=== PATIENT | female | born 1995 | race Asian ===

== ENCOUNTER → 2021-06-23 15:02 | Outpatient (CLI) | payer BC, SELFPAY ==
[2021-06-23 15:32] LABS: Absolute Lymphocyte Count 2.44 X10^3/uL (0.83-4.51); Absolute Neutrophil Count 5.8 X10^3/uL (2.0-7.7); Basophil# 0.04 X10^3/uL; Basophil% 0.4 % (0-1); Eosinophil# 0.16 X10^3/uL; Eosinophils% 1.7 % (0-5); Hematocrit 37.3 % (37-47); Hemoglobin 12.4 g/dL (12.0-15.0); Lymphocyte # 2.44 X10^3/ul (0.83-4.51); Lymphocyte % 26.4 % (19-41); Mean Corp Hgb Conc 33.2 g/dL (32-36); Mean Corpuscular Hgb 29.9 pg (27.0-32.0); Mean Corpuscular Volume 89.9 fL (81-99); Mean Platelet Vol. 9.5 fl (6.2-12.0); Monocyte# 0.75 X10^3/uL; Monocyte% 8.1 % (0-10); NRBC Flagged by Analyzer 0 % (0-5); Neutrophil # 5.81 X10^3/uL (2.7-7.7); Platelet Count 244 K/mm3 (150-450); RBC Distribution Width CV 12.3 % (11.6-14.6); RBC Distribution Width SD 40.6 fl (35.1-43.9); Red Blood Count 4.15 M/mm3 (4.2-5.4); White Blood Count 9.2 K/mm3 (4.4-11.0)
[2021-06-23 17:16] LABS: Amphetamine Urine VISTA NEGATIVE (<1000 ng/mL); Barbiturate Urine VISTA NEGATIVE (< 200 ng/mL); Benzodiazepine Urine VISTA NEGATIVE (< 200 ng/mL); Cocaine Urine VISTA NEGATIVE (< 300 ng/mL); Ecstacy Urine VISTA NEGATIVE (< 500 ng/mL); Methadone Urine VISTA NEGATIVE (< 300 ng/mL); PCP Urine VISTA NEGATIVE (< 25 ng/mL); THC Urine VISTA NEGATIVE (< 50 ng/mL); Vista UDS pH Range 6
[2021-06-24 10:05] LABS: HIV - WCH Non-Reactive (Nonreactive); Hepatitis B Surface Antigen Non-Reactive (Nonreactive); Hepatitis C Antibody Non-Reactive (Nonreactive); Rubella IgG Reactive (Nonreactive); Syphilis Antibodies Non-reactive
[2021-06-26 03:06] LABS: Chlamydia By Nucleic Acid AMP Negative (Negative)
[2021-06-26 07:20] LABS: Gonococcus By Nucleic Acid AMP Negative (Negative)
[2021-06-29 23:52] LABS: HPV Reflexed? NOT INDICATED
== END ==
PROVIDERS: Referring Provider Nurse Practitioner Women's Health; Visit Provider Nurse Practitioner Women's Health
DX: Z34.90 Encounter for supervision of normal pregnancy, unspecified, unspecified trimester (principal); Z12.4 Encounter for screening for malignant neoplasm of cervix; Z11.3 Encounter for screening for infections with a predominantly sexual mode of transmission
CPT/HCPCS: 36415; 80307; 85025; 86703; 86762; 86780; 86803; 86850; 86900; 86901; 87086; 87340; 87491; 87591; 88175; G0145

== ENCOUNTER 2021-09-25 20:40 | Emergency (ER) | payer BC, SELFPAY ==
[2021-09-25 20:41] VITALS: BP 110/63; PULSE 115; RESP 16; TEMP 36.6; O2SAT 98; BMI 30.4
[2021-09-25 22:09] VITALS: O2SAT 96
--- NOTE | 2021-09-25 22:10 | EKG12_ITS ---
Test Reason : DYSRHYTHMIA Blood Pressure : / mmHG Vent. Rate : 102 BPM Atrial Rate : 102 BPM P-R Int : 148 ms QRS Dur : 080 ms QT Int : 332 ms P-R-T Axes : 054 078 030 degrees QTc Int : 432 ms Sinus tachycardia Otherwise normal ECG Confirmed by GREYSON PARK, PAYAL ([id number]), overlock sleeve setter MARIKA EDMONDSON ([id number]) on 09/27/2021 10:18:22 AM Referred By: JORDANA Confirmed By:PAYAL RUBI MD
--- NOTE | 2021-09-25 22:21 | EX.ED.VIS.UR ---
HPI HPI - URI History of Present Illness Chief Complaint: Cough Narrative Narrative: 25-year-old female presenting with a cough. She is diagnosed with COVID-19 and she is currently on day 5. She does admit to body aches and chills. She had a low-grade fever at home. She is not dyspneic. She does complain of a little bit of tightness in the left upper chest and the right upper chest. She does not describe this as sharp. It does not hurt worse with deep inspiration. She is concerned that she might have developed a secondary bacterial infection from her Covid. She has no nausea or vomiting. No urinary complaints. She is currently 23 weeks gestation without complications. ROS ROS ED Constitutional Constitutional ED: Reports chills and fever(s) Eyes Eyes: Denies blurry vision or change in vision ENT ENT ED: Reports rhinorrhea; Denies sore throat Cardiovascular Cardiovascular: Reports chest pain; Denies palpitations Respiratory/Chest Respiratory/Chest: Reports cough; Denies dyspnea Gastrointestinal Gastrointestinal: Denies abdominal pain, nausea or vomiting Genitourinary Genitourinary ED: Denies dysuria or hematuria Musculoskeletal Musculoskeletal: Reports myalgias; Denies arthralgias Integumentary Denies abscess or rash Neurologic Neurologic: Reports headache(s); Denies paresthesias or weakness Psychiatric Psychiatric: Denies anxiety or depression PFSH PFSH Home Medications prenat.vits,nabila,kyf-xxdt-znyuh 1 tab PO DAILY 05/17/21 [History Last Taken Unknown] Allergy/AdvReac Type Severity Reaction Status Date / Time No Known Allergies Allergy Verified 09/25/21 20:48 Family History Grandmother Diabetes Other Cancer Social History adopted: No household members: spouse current occupational status: employed 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 animals: No Smoking Status: Never smoker alcohol intake: never substance use type: does not use caffeine: Yes what type of physical activity do you participate in: running and aerobics frequency: 3-4 times per week seatbelt use: always do you feel safe at home: Yes [facility] EX[facility] Physical Exam Const Vital Signs: 09/25/21 20:41 09/25/21 22:09 09/25/21 22:31 Temperature 97.9 F Temperature Source Temporal Pulse Rate 115 H Respiratory Rate 16 Respiratory Effort Short of Breath Respiratory Pattern Normal Blood Pressure 110/63 Blood Pressure Mean 78 Pulse Ox 98 96 99 Oxygen Delivery Method Room Air Room Air Room Air 09/26/21 00:33 09/26/21 00:41 Temperature Temperature Source Pulse Rate 107 H 98 Respiratory Rate 20 H 16 Respiratory Effort Respiratory Pattern Blood Pressure 104/58 L Blood Pressure Mean 73 Pulse Ox 96 97 Oxygen Delivery Method Room Air Room Air Positive well nourished General Appearance ED: NAD; Negative for pallor HEENT Reports moist mucous membranes normocephalic and atraumatic Resp normal respiratory effort and clear to auscultation bilaterally Cardio Rate: tachycardic Rhythm: regular rhythm GI non-tender and non-distended Palpation: soft Neuro oriented x3 and CN's II-XII intact bilaterally Sensorium / Orientation: alert Psych mental status grossly normal Skin General Skin Exam: Negative for jaundice or pallor MDM MDM MDM Narrative Medical decision making narrative: Patient presenting 23 weeks gestation with current diagnosis of Covid on day 5. We had a long discussion about her chest pain which is intermittent and feels tight. She does not have pain with deep inspiration. She does describe this is more of a painful cough. She denies any cardiac history. This is her first . She has no history of DVT/PE and no other risk factors other than Covid. I had a lengthy discussion about using a D-dimer, however the patient feels that even if her D-dimer was elevated she would not want a CAT scan of her test due to being . For this reason I will not perform this. Patient will have basic lab work including a troponin as well as EKG and chest x-ray to address her concern of secondary bacterial pneumonia. Her blood work shows that she is leukopenic and lymphopenic. Her hemoglobin medic are stable. Renal function and electrolytes are normal. Initial high-sensitivity troponin is 4 the second 1 is 5. EKG on my interpretation shows a sinus rhythm with a ventricular rate of 103/min without sign of ischemic change. Chest x-ray my interpretation shows bilateral pulmonary infiltrates worse on the right. Radiologist agree. Patient's respiratory rate is 16, currently her pulse is 98, O2 saturations 97%. I believe she is stable for discharge home. I did give her return precautions for worsening pain. Impression: 1. Chest pain noncardiac 2. COVID-19 pneumonitis Lab Data Labs: Laboratory Results - last 24 hr 09/25/21 09/25/21 09/25/21 00:30 22:28 22:28 WBC 3.8 L RBC 4.15 L Hgb 12.4 Hct 36.5 L MCV 88.0 MCH 29.9 MCHC 34.0 RDW Std Deviation 38.6 RDW Coeff of Brennan 12.0 Plt Count 139 L MPV 9.8 Immature Gran % (Auto) 2.600 H Neut % (Auto) 68.0 Lymph % (Auto) 18.1 L [place] % (Auto) 10.2 H Eos % (Auto) 0.8 Baso % (Auto) 0.3 Absolute Neuts (auto) 2.6 Absolute Lymphs (auto) 0.69 L Nucleated RBC % 0 Sodium 134 L Potassium 3.6 Chloride 101 Carbon Dioxide 27.0 Anion Gap 6 BUN 4 L Creatinine 0.52 L Estim Creat Clear Calc 141.57 Est GFR (MDRD) Af Amer 182 Est GFR (MDRD) Non-Af 151 BUN/Creatinine Ratio 7.7 L Glucose 92 Calcium 8.3 L Troponin I High Sens 4 5 Urine Color Urine Clarity Urine pH Ur Specific [place] Urine Protein Urine Glucose (UA) Urine Ketones Urine Occult Blood Urine Nitrite Urine Bilirubin Urine Urobilinogen Ur Leukocyte Esterase Urine RBC Urine WBC Ur Squamous Epith Cells Urine Bacteria Urine Mucus 09/25/21 23:50 WBC RBC Hgb Hct MCV MCH MCHC RDW Std Deviation RDW Coeff of Brennan Plt Count MPV Immature Gran % (Auto) Neut % (Auto) Lymph % (Auto) [place] % (Auto) Eos % (Auto) Baso % (Auto) Absolute Neuts (auto) Absolute Lymphs (auto) Nucleated RBC % Sodium Potassium Chloride Carbon Dioxide Anion Gap BUN Creatinine Estim Creat Clear Calc Est GFR (MDRD) Af Amer Est GFR (MDRD) Non-Af BUN/Creatinine Ratio Glucose Calcium Troponin I High Sens Urine Color Yellow Urine Clarity Clear Urine pH 7.0 Ur Specific [place] 1.010 Urine Protein Negative Urine Glucose (UA) Normal Urine Ketones 50 H Urine Occult Blood Negative Urine Nitrite Negative Urine Bilirubin Negative Urine Urobilinogen Normal Ur Leukocyte Esterase Negative Urine RBC 0 SEEN Urine WBC 0-5 SEEN Ur Squamous Epith Cells 0-5 SEEN Urine Bacteria 1+ Urine Mucus 0 SEEN Radiography Diagnostic Testing: Clinical Impression(s) from Imaging Studies Chest X-Ray 09/25/21 22:47 IMPRESSION: 1. Bibasilar, right greater than left, patchy airspace opacities suspicious for early multifocal pneumonia. Electronically Signed: Bartolo Berrios DO at 0:22 EST Tel , Service support , Discharge Plan Triage Chief Complaint: Cough ED Provider: Melquiades Mota Dx/Rx/DC Orders Instructions: Coronavirus Disease 2019 (COVID-19): Caring for Yourself or Others Prescriptions: No Action prenat.vits,nabila,znu-abcj-quaxq Tablet 1 tab PO DAILY RF: 0 Primary Care Provider: Care Physician,No Primary Referrals: Care Physician,No Primary [Primary Care Provider] - Disposition Disposition: Home, Self Care
[2021-09-25 22:31] VITALS: O2SAT 99
[2021-09-25 22:36] LABS: Absolute Lymphocyte Count 0.69 X10^3/uL (0.83-4.51); Absolute Neutrophil Count 2.6 X10^3/uL (2.0-7.7); Basophil# 0.01 X10^3/uL; Basophil% 0.3 % (0-1); Eosinophil# 0.03 X10^3/uL; Eosinophils% 0.8 % (0-5); Hematocrit 36.5 % (37-47); Hemoglobin 12.4 g/dL (12.0-15.0); Lymphocyte # 0.69 X10^3/ul (0.83-4.51); Lymphocyte % 18.1 % (19-41); Mean Corpuscular Hgb 29.9 pg (27.0-32.0); Mean Platelet Vol. 9.8 fl (6.2-12.0); Monocyte# 0.39 X10^3/uL; Monocyte% 10.2 % (0-10); NRBC Flagged by Analyzer 0 % (0-5); Neutrophil # 2.59 X10^3/uL (2.7-7.7); Platelet Count 139 K/mm3 (150-450); RBC Distribution Width SD 38.6 fl (35.1-43.9); Red Blood Count 4.15 M/mm3 (4.2-5.4); White Blood Count 3.8 K/mm3 (4.4-11.0)
--- NOTE | 2021-09-25 22:47 | RAD_ITS ---
INDICATION: chest pain EXAMINATION/TECHNIQUE: X-RAY - XR Chest 1 View COMPARISON: None. FINDINGS: LINES/DEVICES: None. LUNGS: Symmetric normal lung volumes. Bibasilar, right greater than left, patchy airspace opacities suspicious for multifocal pneumonia. No pleural effusion. No pneumothorax. Central airways normal. MEDIASTINUM AND CARDIOVASCULAR STRUCTURES: Normal size and contour of the cardiomediastinal silhouette. No evidence of pulmonary vascular congestion. BONES AND SOFT TISSUES: No abnormality within limits of the exam. RAD/Chest 1 View (Portable) IMPRESSION: 1. Bibasilar, right greater than left, patchy airspace opacities suspicious for early multifocal pneumonia. Electronically Signed: Bartolo Berrios DO at 0:22 EST Tel , Service support ,
[2021-09-25 22:53] LABS: Anion Gap 6 (5-15); BUN 4 mg/dL (7-18); BUN/Creat Ratio 7.7 RATIO (10-20); Calcium,Total 8.3 mg/dL (8.5-10.1); Chloride 101 mmol/L (98-107); Creatinine, Serum 0.52 mg/dL (0.55-1.02); EST Glomerular Filtration Rate 151 mL/min (>60); Est Glom Filt Rate - Afr Amer 182 mL/min (>60); Estimated Creatinine Clearance 141.57 ml/min; Glucose 92 mg/dL (74-106); Potassium 3.6 mmol/L (3.5-5.1); Sodium Level 134 mmol/L (136-145); Troponin-I HS 5 pg/mL (3.0-54.0)
[2021-09-25 23:53] LABS: Mucous, Urine 0 SEEN /hpf (<or=2+); Red Blood Cells-Urine 0 SEEN /hpf (0-5)
[2021-09-26 00:06] LABS: Color, Urine Yellow (Yellow); Glucose, Dipstick Normal (Normal); Ketone-Dipstick 50 mg/dl (Negative); Leukocyte Esterase-Dipstick Negative /ul (Negative); Nitrite-Dipstick Negative (Negative); Occult Blood-Urine Negative /ul (Negative); Protein-Dipstick Negative (Negative); Urine Bilirubin Dipstick Negative (Negative); Urine Clarity Clear (Clear); Urine Urobilinogen Normal (Normal)
[2021-09-26 00:20] LABS: Bacteria 1+ /hpf (None Seen); Squamous Epithelial Cells - UA 0-5 SEEN /hpf (5-10); White Blood Cells 0-5 SEEN /hpf (0-5)
[2021-09-26 00:33] VITALS: PULSE 107; RESP 20; O2SAT 96
[2021-09-26 00:41] VITALS: BP 104/58; PULSE 98; RESP 16; O2SAT 97
[2021-09-26 00:57] LABS: Troponin-I HS 4 pg/mL (3.0-54.0)
== END 2021-09-26 01:37 | disposition home or self-care (01) ==
PROVIDERS: Emergency Provider Student in an Organized Health Care Education/Training Program
DX: O98.512 Other viral diseases complicating pregnancy, second trimester (principal); U07.1 COVID-19; O99.512 Diseases of the respiratory system complicating pregnancy, second trimester; J12.82 Pneumonia due to coronavirus disease 2019; Z3A.23 23 weeks gestation of pregnancy
CPT/HCPCS: 71045; 80048; 81001; 84484; 85025; 93005; 99284; A4216

== ENCOUNTER → 2021-10-11 09:01 | Outpatient (CLI) | payer BC, SELFPAY ==
[2021-10-11 09:22] LABS: Absolute Lymphocyte Count 1.66 X10^3/uL (0.83-4.51); Absolute Neutrophil Count 7.5 X10^3/uL (2.0-7.7); Basophil# 0.05 X10^3/uL; Basophil% 0.5 % (0-1); Eosinophil# 0.07 X10^3/uL; Eosinophils% 0.7 % (0-5); Hematocrit 33.1 % (37-47); Hemoglobin 11.1 g/dL (12.0-15.0); Lymphocyte # 1.66 X10^3/ul (0.83-4.51); Lymphocyte % 16.2 % (19-41); Mean Corp Hgb Conc 33.5 g/dL (32-36); Mean Corpuscular Hgb 29.8 pg (27.0-32.0); Mean Platelet Vol. 9.8 fl (6.2-12.0); Monocyte# 0.73 X10^3/uL; Monocyte% 7.1 % (0-10); NRBC Flagged by Analyzer 0 % (0-5); Neutrophil # 7.52 X10^3/uL (2.7-7.7); Neutrophil % 73.4 % (47-70); Platelet Count 275 K/mm3 (150-450); RBC Distribution Width CV 12.5 % (11.6-14.6); Red Blood Count 3.72 M/mm3 (4.2-5.4); White Blood Count 10.2 K/mm3 (4.4-11.0)
[2021-10-11 09:33] LABS: Glucose Challenge Gest 1H 50g 96 mg/dL (70-140)
== END ==
PROVIDERS: Referring Provider Obstetrics & Gynecology; Visit Provider Obstetrics & Gynecology
DX: Z34.01 Encounter for supervision of normal first pregnancy, first trimester (principal)
CPT/HCPCS: 36415; 82950; 85025

== ENCOUNTER 2021-12-01 07:58 | Outpatient (CLI) | payer BC, SELFPAY ==
--- NOTE | 2021-12-01 08:00 | US_ITS ---
STUDY: SECOND AND THIRD TRIMESTER OBSTETRICAL ULTRASOUND REASON FOR EXAM: Female, 25 years old growth. History of prior Covid LMP: 04/15/2021. TECHNIQUE: Transabdominal TECHNICAL QUALITY: Adequate. PRIOR ULTRASOUND: None. FINDINGS: There is a single intrauterine fetus. The fetus is in a cephalic presentation. There is demonstrated cardiac activity with a heart rate of 138 bpm. There is a normal amniotic fluid volume. The largest amniotic fluid pocket measures 5.4 cm. The amniotic fluid index (DANG) is 14 cm. The placenta is posterior in location and is not low lying. There are Grade 1 placental changes. The cervix measures 4.4 cm in length. The adnexal regions are not visualized. BIOMETRY: BPD: 8.26 cm: 33 weeks, 1 days HC: 30.89 cm: 34 weeks, 3 days AC: 29.13 cm: 33 weeks, 0 days FL: 6.19 cm: 32 weeks, 0 days CI: 76% FL/BPD: 74.9% FL/HC: FL/AC: 21.25% HC/AC: 1.06 age by current US: 33 weeks, 3 days. TOI by current US: 01/16/2022. Estimated weight: 2084 grams, +/- 313 grams, 43 %. Age by LMP: 32 weeks, 6 days. TOI by LMP: 01/20/2022. US/OB Limited With Biometrics IMPRESSION: Single live intrauterine gestation with a mean gestational age of 33 weeks and 3 days. Electronically Signed: Stone Ortiz MD at 8:25 EST ,
== END 2021-12-01 23:59 | disposition home or self-care (01) ==
LOC: OPUS 07:59
PROVIDERS: Referring Provider Nurse Practitioner Women's Health; Visit Provider Nurse Practitioner Women's Health
DX: O98.519 Other viral diseases complicating pregnancy, unspecified trimester (principal); U07.1 COVID-19; Z3A.00 Weeks of gestation of pregnancy not specified
CPT/HCPCS: 76816

== ENCOUNTER 2021-12-29 16:49 | Outpatient (CLI) | payer BC, SELFPAY | END 2021-12-29 23:59 | disposition home or self-care (01) | LOC: LABSPEC 16:51 | PROVIDERS: Referring Provider Obstetrics & Gynecology; Visit Provider Obstetrics & Gynecology | DX: Z34.01 Encounter for supervision of normal first pregnancy, first trimester (principal) | CPT/HCPCS: 87081 ==

== ENCOUNTER 2022-01-03 07:38 | Outpatient (CLI) | payer BC, SELFPAY ==
--- NOTE | 2022-01-03 07:43 | US_ITS ---
STUDY: SECOND AND THIRD TRIMESTER OBSTETRICAL ULTRASOUND - LIMITED REASON FOR EXAM: Female, 26 years old. growth PRIOR ULTRASOUND: 2.9.22 TECHNIQUE: Transabdominal TECHNICAL QUALITY: Adequate. FINDINGS: There is a single intrauterine fetus. The fetus is in a cephalic presentation. There is demonstrated cardiac activity with a heart rate of 125 bpm. There is a normal amniotic fluid volume. The largest amniotic fluid pocket measures 4.8 cm. The amniotic fluid index (DANG) is 12.1 cm. The placenta is posterior in location and is not low lying. There are Grade 2 placental changes. The cervix is obscured by overlying bowel gas and cannot be identified. . BIOMETRY: BPD: 91 mm: 37 weeks, 0 days HC: 333 mm: 38 weeks, 0 days AC: 330 mm: 36 weeks, 6 days FL: 69 mm: 35 weeks, 3 days CI: 80 FL/AC: 21 FL/BPD: 76 HC/AC: 1.01 age by current US: 37 weeks, 1 days. TOI by current US: 4.3.22. Estimated weight: 3007 grams, +/- 451 grams, 37 %. age by prior US: 38 weeks, 1 days. TOI by prior US: 3.27.22. Age by LMP: 37 weeks, 4 days. TOI by LMP: 3.3.22. ANATOMY: Growth only US/OB Limited With Biometrics IMPRESSION: There is a single live intrauterine with a heart rate of 125 bpm. age by current US: 37 weeks, 1 days. TOI by current US: 4.3.22. Estimated weight: 3007 grams, +/- 451 grams, 37 %. Electronically Signed: Oscar Ngo MD at 15:48 EDT ,
== END 2022-01-03 23:59 | disposition home or self-care (01) ==
LOC: OPUS 07:42
PROVIDERS: Referring Provider Nurse Practitioner Women's Health; Visit Provider Nurse Practitioner Women's Health
DX: O98.519 Other viral diseases complicating pregnancy, unspecified trimester (principal); U07.1 COVID-19; Z3A.00 Weeks of gestation of pregnancy not specified
CPT/HCPCS: 76816

== ENCOUNTER 2022-01-10 08:05 | Inpatient (IN) | payer BC, SELFPAY ==
[2022-01-10] VITALS (26 sets, daily range): BP systolic 110–139; BP diastolic 54–81; PULSE 65–88; TEMP 36.4–37.1; O2SAT 83–99; BMI 34.5
[2022-01-10 08:04] LABS: ROM Internal Control Test YES-OK TO RESULT pt. (Internal QC)
[2022-01-10 08:05] LABS: ROM Patient Test POSITIVE (Negative)
--- NOTE | 2022-01-10 08:28 | HP.PCM.OB_ITS ---
HPI - General General Date of Admission: 01/10/22 HPI Narrative ELISABET STANLEY, is a 26 F who presents with clear ROM since yesterday, irregular ctx now increasing Maternal Data Information TOI Calculator Estimated Delivery Date Method Current WG Current Estimate 01/20/22 LMP (Certain) 38w 5d PFSH PFSH Medical History (Updated 01/10/22 @ 20:[address] 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 Smoking Status: Never smoker alcohol intake: never substance use type: does not use caffeine: Yes what type of physical activity do you participate in: running and aerobics frequency: 3-4 times per week seatbelt use: always do you feel safe at home: Yes additional social history: -Saurav History 1 Elective abortions Hx Para 0 Spontaneous abortions Hx # Term Pregnancies Ectopic pregnancies Hx # Pregnancies Multiple births # of living children Visit Details Expected Delivery Route/Plan plan IOL at 41 Labor Preferences- CB/BF classes: yes labor support person: Saurav labor intervention preferences: [] pain management options preferred: yes but wants limited intervention cut cord/dad catch: yes : yes PP control planned: discussed discussed possible routes of delivery and associated risks: [] special requests: [] Plans Covid status: had covid while Flu vaccine: declines Tdap vaccine: declined Rhogam: NA LARC form signed: Yes movement and labor precautions reviewed. Problem list reviewed and updated with the most current plan of care details and appropriate orders placed. Relevant counseling for the gestational age provided. Continue routine care and follow up unless otherwise noted in visit notes/problem list details OB Flowsheet Initial Weight: Not Recorded Date -?-?-?-?-?-?-?-?-?-?-?-?- EGA Weight BP Urine Prot -?-?-?-?-?-?--?-?-?-?-?-?- Glucose FHR FuHt Pres Dilation -?-?-?-?-?-?-?-?-?-?-?-?- Effaced St Visit Note 07/28/21 -?-?-?-?-?-?-?-?-?-?-?-?- 14w 6d 169 lb 8 oz 120/78 Nega tive -?-?-?-?-?-?-?-?-?-?-?-?- Negative 145 -?-?-?-?-?-?-?-?-?-?-?-?- GP - no cramping or bleeding. Nausea improved. PRR. Anatomy ordered. 08/18/21 -?-?-?-?-?-?-?-?-?-?-?-?- 17w 6d 175 lb 114/68 Negative -?-?-?-?-?-?-?-?-?-?-?-?- Negative 143 -?-?-?-?-?-?-?-?-?-?-?-?- MH-No Vb, LOF. D eclines flu vaccine. Thinks feeling flutters. Anatomy US 08/2509/15/21 -?-?-?-?-?-?-?-?-?-?-?-?- 21w 6d 181 lb 4 oz 100/70 Nega tive -?-?-?-?-?-?-?-?-?-?-?-?- Negative 145 22 -?-?-?-?-?-?-?-?-?-?-?-?- JV- no lof, vagi nal bleeding, dec fm. having a girl! normal anatomy. glucola info given 10/11/21 -?-?-?-?-?-?-?-?-?-?-?-?- 25w 4d 179 lb 4 oz 128/76 Trac e -?-?-?-?-?-?-?-?-?-?-?-?- Negative 151 25 -?-?-?-?-?-?-?-?-?-?-?-?- MH-No Vb, LOF Go od FM. Needs growth US at 32 and 36 wk and take baby ASA daily due to recent covid +. 28 wk labs WNL. Larc and tdap 10/29/21 -?-?-?-?-?-?-?-?-?-?-?-?- 28w 1d 185 lb 4 oz 110/70 Nega tive -?-?-?-?-?-?-?-?-?-?-?-?- Negative 154 28 -?-?-?-?-?-?-?-?-?-?-?-?- JV- no lof, va g inal bleeding, or dec fm. passed glucola. 11/10/21 -?-?-?-?-?-?-?-?-?-?-?-?- 29w 6d 188 lb 104/70 Negative -?-?-?-?-?-?-?-?-?-?-?-?- Negative 141 30 -?-?-?-?-?-?-?-?-?-?-?-?- JV- lots of ques tions about the labor class they took. they want to decline abx eye ointment, 11/24/21 -?-?-?-?-?-?-?-?-?-?-?-?- 31w 6d 196 lb 8 oz 118/72 Nega tive -?-?-?-?-?-?-?-?-?-?-?-?- Negative 140 31 -?-?-?-?-?-?-?-?-?-?-?-?- JV- no lof, vagi nal bleeding, or dec fm. labs reviewed. nrml 1 hr gct. 12/06/21 -?-?-?-?-?-?-?-?-?-?-?-?- 33w 4d 194 lb 102/60 Negative -?-?-?-?-?-?-?-?-?-?-?-?- Negative 140 33 -?-?-?-?-?-?-?-?-?-?-?-?- SM- no vb lof go od fm no regular ctx 12/22/21 -?-?-?-?-?-?-?-?-?-?-?-?- 35w 6d 194 lb 110/80 Negative -?-?-?-?-?-?-?-?-?-?-?-?- Negative 125 35 -?-?-?-?-?-?-?-?-?-?-?-?- JV- pt has a selwyn lee ann today. bp normal. encouraged to try tylenol and rest and call if no improvement 12/29/21 -?-?-?-?-?-?-?-?-?-?-?-?- 36w 6d 198 lb 2 oz 136/88 Nega tive -?-?-?-?-?-?-?-?-?-?-?-?- Negative 134 36 Cephalic 0 -?-?-?-?-?-?-?-?-?-?-?-?- 60 -3 JV- pt had to reschedule ultrasound. GBS collected and labor precautions discussed. 01/03/22 -?-?-?-?-?-?-?-?-?-?-?-?- 37w 4d 199 lb 102/62 Negative -?-?-?-?-?-?-?-?-?-?-?-?- Negative 120 37 Cephalic -?-?-?-?-?-?-?-?-?-?-?-?- SM- no vb lof go od fm no regular ctx 01/10/22 -?-?-?-?-?-?-?-?-?-?-?-?- 38w 4d 195 lb 110/62 139/70 123/70 116/67 128/81 116/60 120/72 126/61 122/68 115/54 122/57 133/60 132/61 115/57 125/66 123/61 119/62 127/67 -?-?-?-?-?-?-?-?-?-?-?-?- -?-?-?-?-?-?-?--?-?-?-?-?- NST FHR Rate Baby A Baseline: 140 Variability:: Moderate Accelerations:: 15 x 15 Decelerations:: None NST Reactive:: Yes FHR Category:: Category I ROS Constitutional Constitutional: Reports systems reviewed and no addt'l complaints, except as documented ENT HEENT: Reports systems reviewed and no addt'l complaints, except as documented Cardiovascular Cardiovascular: Reports systems reviewed and no addt'l complaints, except as documented Respiratory/Chest Respiratory/Chest: Reports systems reviewed and no addt'l complaints, except as documented Gastrointestinal Gastrointestinal: Reports systems reviewed and no addt'l complaints, except as documented and nausea; Denies abdominal pain Genitourinary Genitourinary: Reports systems reviewed and no addt'l complaints, except as documented, contractions Details: present and frequency (regular ) and movement Details: present Musculoskeletal Musculoskeletal: Reports systems reviewed and no addt'l complaints, except as documented Integumentary Integumentary: Reports as per HPI Neurologic Neurologic: Reports systems reviewed and no addt'l complaints, except as documented Endocrine Endocrinology: Reports systems reviewed and no addt'l complaints, except as documented Vital Signs Vital Signs Vital Signs: 01/10/22 07:41 Pulse Rate 65 Blood Pressure 110/62 BP Systolic 110 BP Diastolic 62 Weight Weight: 195 lb Body Mass Index (BMI) 34.5 Physical Exam Const alert, oriented x3 and healthy appearing Constitutional Narrative: uncomfortable with contractions HEENT normocephalic and moist oral mucous membranes Head and Scalp: atraumatic Neck full ROM, no lymphadenopathy, supple and thyroid normal General: trachea midline Thyroid: thyroid normal Lymph Lymphatic: no lymphadenopathy noted Chest inspection of chest normal Resp normal respiratory effort Cardio regular rate GI normal to inspection, nondistended, normoactive bowel sounds, soft to palpation and non-tender Inspection: gravid external exam normal Bimanual Exam - Vag & Uterus: uterus non-tender Manual OB Exam: estimated gestational size appropriate, presentation cephalic, dilated 3, effaced 90 and station -1 Extremity normal to inspection General Extremity: Negative for edema Skin no rashes or lesions noted Neuro deep tendon reflexes 2+ bilaterally Motor Exam: strength 5/5 throughout and clonus absent Psych mental status grossly normal Labs Labs Labs: Blood Type A POSITIVE Antibody Screen NEGATIVE Hct 39.7 % (37-47) Hgb 13.5 g/dL (12.0-15.0) Obstetrics US Syphilis Total Ab Non-reactive Rubella IgG Antibody Reactive (Nonreactive) Hep Bs Antigen Non-Reactive (Nonreactive) Chlamydia DNA ([place]) Negative (Negative) Neisseria gonorrhoeae DNA ([place]) Negative (Negative) HIV 1&2 Antibody Non-Reactive (Nonreactive) Glucose 1 Hr 50 gm 96 mg/dL (70-140) Assessment & Plan (1) COVID-19 affecting , antepartum: COMMENT: baby asa growth US at 32 and 36 weeks, nl growth, 36w nl growth (2) Supervision of normal : QUALIFIERS: Normal : normal first Trimester: first trimester Qualified Code(s): Z34.01 - Encounter for supervision of normal first , first trimester COMMENT: PRR TOI: 01/20/22 girl Iman Spouse: Saurav (3) Psoriasis: COMMENT: no meds (4) : QUALIFIERS: Weeks of gestation: 37 weeks Qualified Code(s): Z3A.37 - 37 weeks gestation of COMMENT: declines genetic and carrier screen, 08/24/21 nl anatomy scan. GBS neg (5) Prolonged rupture of membranes: COMMENT: monitor for signs of infection, pitocin PRN. epidurla if desired, prefers minimal intervention
[2022-01-10] MEDS: Lactated Ringers 1,000 ML 50 ML IV (08:45)
[2022-01-10 09:04] LABS: Absolute Lymphocyte Count 1.52 X10^3/uL (0.83-4.51); Absolute Neutrophil Count 12.4 X10^3/uL (2.0-7.7); Basophil# 0.03 X10^3/uL; Basophil% 0.2 % (0-1); Eosinophil# 0.03 X10^3/uL; Eosinophils% 0.2 % (0-5); Hematocrit 39.7 % (37-47); Hemoglobin 13.5 g/dL (12.0-15.0); Lymphocyte # 1.52 X10^3/ul (0.83-4.51); Lymphocyte % 10.2 % (19-41); Mean Corpuscular Hgb 30.5 pg (27.0-32.0); Mean Corpuscular Volume 89.6 fL (81-99); Mean Platelet Vol. 10.5 fl (6.2-12.0); Monocyte# 0.81 X10^3/uL; Monocyte% 5.4 % (0-10); NRBC Flagged by Analyzer 0 % (0-5); Neutrophil # 12.35 X10^3/uL (2.7-7.7); Neutrophil % 83.1 % (47-70); Platelet Count 248 K/mm3 (150-450); RBC Distribution Width CV 12.5 % (11.6-14.6); RBC Distribution Width SD 41.1 fl (35.1-43.9); Red Blood Count 4.43 M/mm3 (4.2-5.4); White Blood Count 14.9 K/mm3 (4.4-11.0)
[2022-01-10] MEDS: Oxytocin 30 units/NS 500 ml 30 UNITS/500 ML IV.SOLN IV (16:45)
--- NOTE | 2022-01-10 18:05 | PCM.PN.BLA ---
Progress Note reassuring FHT no signs of chorio, pitocin started for arrest at 5 cm. continue labor support
[2022-01-10] MEDS: fentaNYL 100 MCG/2 ML Ampul IV (18:11)
--- NOTE | 2022-01-10 20:17 | EX.PCM.OBRPT ---
Assessment & Plan (1) : QUALIFIERS: Weeks of gestation: 37 weeks Qualified Code(s): Z3A.37 - 37 weeks gestation of COMMENT: declines genetic and carrier screen, 08/24/21 nl anatomy scan. GBS neg (2) Psoriasis: COMMENT: no meds (3) Supervision of normal : QUALIFIERS: Normal : normal first Trimester: first trimester Qualified Code(s): Z34.01 - Encounter for supervision of normal first , first trimester COMMENT: PRR TOI: 01/20/22 tony Valerio Spouse: Saurav (4) COVID-19 affecting , antepartum: COMMENT: baby asa growth US at 32 and 36 weeks, nl growth, 36w nl growth (5) Prolonged rupture of membranes: COMMENT: monitor for signs of infection, pitocin PRN. epidurla if desired, prefers minimal intervention (6) Vaginal delivery: COMMENT: ial prom girl ligia Maternal Data Information TOI Calculator Estimated Delivery Date Method Current WG Current Estimate 01/20/22 LMP (Certain) 38w 4d Vaginal Delivery Operative Information Date of Procedure: 01/10/22 Pre-Operative Diagnosis: IAL Post-Operative Diagnosis: same Surgery / Procedure Performed: Spontaneous Vaginal Delivery Type of Anesthesia: None Special Medications: none Estimated Blood Loss: 100 Fluids Replaced: crystalloid Findings Description of Procedure: Patient began pushing and delivered the head in the FRANCIA presentation. The head was delivered atraumatically . The anterior and posterior shoulders delivered without complication followed by the rest of the infant and the infant was placed on the maternal abdomen. Delayed cord clamping was employed for approximately 60 seconds. Cord was clamped and cut and gentle traction was applied to the cord and the placenta delivered spontaneously immediately following it was noted to be intact with three-vessel cord. The perineum and vagina were inspected and noted to have no laceration. EBL was 100 cc. Patient and infant tolerated delivery well. Presentation: FRANCIA Amniotic Membrane Rupture Type: Artificial Amniotic Fluid Description: Clear Placental Delivery Description: Spontaneous Placenta Disposition: [facility] Cord Vessel Description: 3 Vessels Cord Entanglement: None Delayed Cord Clamping: Yes Post Vaginal Delivery Episiotomy Description: None Laceration: None Complication Complications: None Procedures Urinary/Genital [id number]: [id number] Vaginal Delivery [facility]
--- NOTE | 2022-01-10 20:22 | PCM.DC ---
Discharge Instructions Diet Discharge Diet: No restrictions Activity Discharge Activity: Return to Normal Activity, May Not Drive (while taking narcotic pain medications.) and May Shower May resume sexual activity in: 4-6 weeks Dressing / Incision Call your doctor if your incision/area has: Continuous Slow Oozing, Sudden Increased Bleeding, Increased Pain/ Swelling, Increased Redness and Foul Smelling Discharge Follow Up Care Please Follow Up With: Shikha Hernandez MD When: Call [phone] to make an appointment with your doctor in 6 weeks. If you had elevated blood pressure or 4th degree laceration, you will need to be seen in 2 weeks. Test Results: Test results from this visit will be discussed in further detail at your follow-up appointment, if applicable. Discharge Plan Admission Admit Date/Time: 01/10/22 08:05 Attending Provider: Shikha Hernandez Primary Care Provider: Care ,Nidhi Primary Discharge Orders/Prescriptions Prescriptions: No Action prenat.vits,nabila,dtc-twma-auesq Tablet 1 tab PO DAILY RF: 0 Aspir-81 RF: 0 Referrals / Follow Up: Care Physician,No Primary [Primary Care Provider] - Disposition Disposition (needs filled in before D/C Order can be placed): Home, Self Care
[2022-01-10] MEDS: Naproxen 500 MG Tablet PO (21:05)
[2022-01-11 00:38] VITALS: BP 110/67; PULSE 99; RESP 16; TEMP 36.9
[2022-01-11 04:31] VITALS: BP 104/51; PULSE 73; RESP 16; TEMP 36.6
--- NOTE | 2022-01-11 07:57 | PN.OBGYN_ITS ---
Subjective Subjective Patient doing well without complaints. Tolerating PO. Ambulating and voiding without difficulty. Feeding well. Denies chest pain, shortness of breath, calf pain/swelling, fevers, chills, lightheadedness. Objective Data Objective Data Vital Signs: Vital Signs Temp Pulse Resp BP Pulse Ox 97.9 F 73 16 104/51 L 99 01/11/22 04:31 01/11/22 04:31 01/11/22 04:31 01/11/22 04:31 01/10/22 18:28 Oxygen Delivery Method Room Air Weight: 195 lb Body Mass Index (BMI) 34.5 Intake & Output: Intake and Output for Last 24 Hours 01/09/22 01/10/22 01/11/22 23:59 23:59 23:59 Intake Total 292.63 / 292.63 Output Total 1300 / 1300 Balance 292.63 / 292.63 -1300 / -1300 Lab / Micro Data Result Diagrams: 01/10/22 08:45 Labs: Laboratory Results - last 24 hr 01/10/22 07:45: Vag Amniotic Fld Detect POSITIVE H 01/10/22 08:45: WBC 14.9 H, RBC 4.43, Hgb 13.5, Hct 39.7, MCV 89.6, MCH 30.5, MCHC 34.0, RDW Std Deviation 41.1, RDW Coeff of Brennan 12.5, Plt Count 248, MPV 10.5, Immature Gran % (Auto) 0.900, Neut % (Auto) 83.1 H, Lymph % (Auto) 10.2 L, Harn[place] % (Auto) 5.4, Eos % (Auto) 0.2, Baso % (Auto) 0.2, Absolute Neuts (auto) 12.4 H, Absolute Lymphs (auto) 1.52, Nucleated RBC % 0 01/10/22 08:45: Blood Type A POSITIVE, Antibody Screen NEGATIVE Micro: Microbiology 01/10/22 09:35 Nasal Secretion SARS-CoV-2 Antigen (Rapid) - Final Physical Exam Const alert and oriented x3 HEENT normocephalic Eyes PERRL Neck full ROM Resp normal respiratory effort GI soft to palpation GI Narrative: FF below U Assessment & Plan (1) Vaginal delivery: COMMENT: ial prom girl ligia PLAN: s/p PPD #1 1. routine post delivery care 2. breast feeding- support given 3. rh positive 4. rubella immune
[2022-01-11 08:27] VITALS: BP 110/62; PULSE 74; RESP 15; TEMP 36.2
[2022-01-11 12:31] VITALS: BP 102/53; PULSE 66; RESP 16; TEMP 36.3
[2022-01-11 15:27] VITALS: BP 102/53; PULSE 83; RESP 15; TEMP 36.4
[2022-01-11 20:52] VITALS: BP 103/52; PULSE 66; RESP 16; TEMP 36.5
[2022-01-12 01:50] VITALS: BP 114/51; PULSE 82; RESP 16; TEMP 36.3
--- NOTE | 2022-01-12 07:48 | PCM.PN.OB ---
Subjective Subjective Patient doing well without complaints. Tolerating PO. Ambulating and voiding without difficulty. Feeding well. Denies chest pain, shortness of breath, calf pain/swelling, fevers, chills, lightheadedness. Objective Data Objective Data Vital Signs: Vital Signs Temp Pulse Resp BP Pulse Ox 97.4 F L 82 16 114/51 L 99 01/12/22 01:50 01/12/22 01:50 01/12/22 01:50 01/12/22 01:50 01/10/22 18:28 Oxygen Delivery Method Room Air Weight: 195 lb Body Mass Index (BMI) 34.5 Intake & Output: Intake and Output for Last 24 Hours 01/10/22 01/11/22 01/12/22 23:59 23:59 23:59 Intake Total 292.63 / 292.63 Output Total 1300 / 1300 Balance 292.63 / 292.63 -1300 / -1300 Lab / Micro Data Result Diagrams: 01/10/22 08:45 Micro: Microbiology 01/10/22 09:35 Nasal Secretion SARS-CoV-2 Antigen (Rapid) - Final Physical Exam Const alert and oriented x3 HEENT normocephalic Eyes PERRL Neck full ROM Resp normal respiratory effort GI soft to palpation GI Narrative: FF below U Assessment & Plan (1) Vaginal delivery: COMMENT: ial prom girl ligia PLAN: s/p PPD # 2 1. routine post delivery care 2. breast feeding- support given 3. rh positive 4. rubella immune
[2022-01-12 08:45] VITALS: BP 106/58; PULSE 72; RESP 16; TEMP 36.6
== END 2022-01-12 10:20 | disposition home or self-care (01) | DRG 807 ==
LOC: WPOUT 08:14 → WP 10:29
PROVIDERS: Obstetrics & Gynecology; Admitting Provider Obstetrics & Gynecology; Visit Provider Obstetrics & Gynecology
DX: O99.72 Diseases of the skin and subcutaneous tissue complicating childbirth (principal); Z37.0 Single live birth; J45.909 Unspecified asthma, uncomplicated; L40.9 Psoriasis, unspecified; Z3A.37 37 weeks gestation of pregnancy; Z86.16 Personal history of COVID-19; O99.52 Diseases of the respiratory system complicating childbirth
CPT/HCPCS: 59025; 59050; 84112; 85025; 86850; 86900; 86901; 87426; 99218; J7120; G0378

== ENCOUNTER → 2022-11-09 | Outpatient (CLI) | payer BC, SELFPAY ==
[2022-11-09 16:00] LABS: hCG Titer Quant., Serum 44844 mIU/mL (1-3)
== END | disposition home or self-care (01) ==
LOC: PAVLAB 14:33
PROVIDERS: Referring Provider Obstetrics & Gynecology; Visit Provider Obstetrics & Gynecology
DX: N91.2 Amenorrhea, unspecified (principal)
CPT/HCPCS: 36415; 84702

== ENCOUNTER → 2022-11-16 | Outpatient (CLI) | payer BC, SELFPAY ==
--- NOTE | 2022-11-16 16:18 | US_ITS ---
STUDY: FIRST TRIMESTER OBSTETRICAL ULTRASOUND REASON FOR EXAM: Female, 26 years old. Viability. Dating. LMP: Unknown TECHNIQUE: Transvaginal TECHNICAL QUALITY: Adequate. PRIOR ULTRASOUND: None. FINDINGS: There is visualization of a single gestational sac in a normal intrauterine position. The mean sac diameter (MSD) measures 2.78 cm, indicating an estimated gestational age (EGA) of 7 weeks, 6 days. The gestational sac shape is within normal limits. There is a visualized yolk sac. The yolk sac measures 0.31 cm. The placenta is non-visualized. There is visualization of a live embryo. The crown-rump length (CRL) measures 1.14 cm, indicating an estimated gestational age (EGA) of weeks, 2 days. There is demonstrated cardiac activity with a heart rate of 127 bpm. The estimated gestation age (EGA) by US is 7 weeks, 4 days. The estimated date of delivery (TOI) by US is July 01, 2023. The uterus measures 8.5 x 6.8 x 6.3 cm. There is a 1.5 x 0.6 x 0.7 cm subchorionic hemorrhage along the inferior aspect of the gestational sac. There is no demonstrated uterine fibroid. The cervix is closed. The right ovary measures 3.9 x 2.8 x 1.7 cm. There is 1.8 x 2.0 x 1.1 cm corpus luteum cyst. There is no visualized right adnexal mass or complex lesion. Normal vascularity and Doppler imaging. The left ovary measures 2.2 x 1.6 x 1.3 cm. There is no left ovarian cyst. There is no visualized left adnexal mass or complex lesion. Vascularity and Doppler imaging. There is minimal fluid in the cul de sac. US/Transvaginal w/Preg US IMPRESSION: 1. Live single intrauterine at 7 weeks, 4 days. TOI is July 01, 2023. 2. Small subchorionic hemorrhage. 3. Right ovarian corpus luteum cyst. Left ovary is unremarkable. Electronically Signed: Jayro Moore DO at 18:06 EST ,
== END | disposition home or self-care (01) ==
LOC: US 16:17
PROVIDERS: Referring Provider Obstetrics & Gynecology; Visit Provider Obstetrics & Gynecology
DX: O20.8 Other hemorrhage in early pregnancy (principal); Z3A.01 Less than 8 weeks gestation of pregnancy; N83.11 Corpus luteum cyst of right ovary; N91.2 Amenorrhea, unspecified
CPT/HCPCS: 76817

== ENCOUNTER → 2022-12-07 | Outpatient (CLI) | payer BC, SELFPAY ==
[2022-12-07 14:21] LABS: Absolute Lymphocyte Count 2.73 X10^3/uL (0.83-4.51); Absolute Neutrophil Count 5.3 X10^3/uL (2.0-7.7); Basophil# 0.02 X10^3/uL; Basophil% 0.2 % (0-1); Eosinophil# 0.09 X10^3/uL; Hematocrit 38.7 % (37-47); Hemoglobin 12.7 g/dL (12.0-15.0); Lymphocyte # 2.73 X10^3/ul (0.83-4.51); Lymphocyte % 30.8 % (19-41); Mean Corp Hgb Conc 32.8 g/dL (32-36); Mean Corpuscular Hgb 29.1 pg (27.0-32.0); Mean Corpuscular Volume 88.8 fL (81-99); Mean Platelet Vol. 9.2 fl (6.2-12.0); Monocyte# 0.64 X10^3/uL; Monocyte% 7.2 % (0-10); NRBC Flagged by Analyzer 0 % (0-5); Neutrophil # 5.34 X10^3/uL (2.7-7.7); Neutrophil % 60.5 % (47-70); Platelet Count 293 K/mm3 (150-450); RBC Distribution Width CV 12.5 % (11.6-14.6); RBC Distribution Width SD 40.9 fl (35.1-43.9); Red Blood Count 4.36 M/mm3 (4.2-5.4); White Blood Count 8.9 K/mm3 (4.4-11.0)
[2022-12-07 15:23] LABS: HIV - WCH Non-Reactive (Nonreactive); Hepatitis B Surface Antigen Non-Reactive (Nonreactive); Hepatitis C Antibody Non-Reactive (Nonreactive); Rubella IgG Reactive (Nonreactive); Syphilis Antibodies Non-reactive
[2022-12-10 12:08] LABS: Chlamydia By Nucleic Acid AMP Negative (Negative)
[2022-12-10 22:13] LABS: Gonococcus By Nucleic Acid AMP Negative (Negative)
== END | disposition home or self-care (01) ==
PROVIDERS: Referring Provider Obstetrics & Gynecology; Visit Provider Obstetrics & Gynecology
DX: Z34.90 Encounter for supervision of normal pregnancy, unspecified, unspecified trimester (principal)
CPT/HCPCS: 36415; 85025; 86703; 86762; 86780; 86803; 86850; 86900; 86901; 87086; 87088; 87186; 87340; 87491; 87591

== ENCOUNTER → 2023-04-19 | Outpatient (CLI) | payer BC, SELFPAY ==
[2023-04-19 13:24] LABS: Absolute Lymphocyte Count 1.91 X10^3/uL (0.83-4.51); Absolute Neutrophil Count 5.7 X10^3/uL (2.0-7.7); Basophil# 0.04 X10^3/uL; Basophil% 0.5 % (0-1); Eosinophil# 0.09 X10^3/uL; Hematocrit 35.8 % (37-47); Hemoglobin 12.2 g/dL (12.0-15.0); Lymphocyte # 1.91 X10^3/ul (0.83-4.51); Lymphocyte % 22.3 % (19-41); Mean Corp Hgb Conc 34.1 g/dL (32-36); Mean Corpuscular Hgb 30.9 pg (27.0-32.0); Mean Corpuscular Volume 90.6 fL (81-99); Monocyte# 0.67 X10^3/uL; Monocyte% 7.8 % (0-10); NRBC Flagged by Analyzer 0 % (0-5); Neutrophil # 5.74 X10^3/uL (2.7-7.7); Neutrophil % 66.9 % (47-70); Platelet Count 259 K/mm3 (150-450); RBC Distribution Width CV 12.5 % (11.6-14.6); RBC Distribution Width SD 41.5 fl (35.1-43.9); Red Blood Count 3.95 M/mm3 (4.2-5.4); White Blood Count 8.6 K/mm3 (4.4-11.0)
[2023-04-19 13:31] LABS: Glucose Challenge Gest 1H 50g 135 mg/dL (70-140)
[2023-04-19 14:24] LABS: HIV - WCH Non-Reactive (Nonreactive); Syphilis Antibodies Non-reactive
== END | disposition home or self-care (01) ==
LOC: PAVLAB 12:47
PROVIDERS: Advanced Practice Midwife; Referring Provider Obstetrics & Gynecology; Visit Provider Obstetrics & Gynecology
DX: O09.90 Supervision of high risk pregnancy, unspecified, unspecified trimester (principal); Z13.1 Encounter for screening for diabetes mellitus; Z3A.00 Weeks of gestation of pregnancy not specified
CPT/HCPCS: 36415; 82950; 85025; 86703; 86780

== ENCOUNTER → 2023-04-27 | Outpatient (CLI) | payer BC, SELFPAY ==
[2023-04-27 08:02] LABS: Glucose GTT-Gestation. Fasting 80 mg/dL (<105)
[2023-04-27 09:01] LABS: Glucose GTT-Gestational 1 Hr 94 mg/dL (<190)
[2023-04-27 10:46] LABS: Glucose GTT-Gestational 2 Hr 87 mg/dL (<165)
[2023-04-27 11:25] LABS: Glucose GTT-Gestational 3 Hr 62 L (<145)
== END | disposition home or self-care (01) ==
PROVIDERS: Referring Provider Advanced Practice Midwife; Visit Provider Advanced Practice Midwife
DX: Z13.1 Encounter for screening for diabetes mellitus (principal)
CPT/HCPCS: 36415; 82951; 82952

== ENCOUNTER → 2023-06-05 | Outpatient (CLI) | payer BC, SELFPAY | END | disposition home or self-care (01) | PROVIDERS: Referring Provider Obstetrics & Gynecology; Visit Provider Obstetrics & Gynecology | DX: O09.90 Supervision of high risk pregnancy, unspecified, unspecified trimester (principal); Z3A.00 Weeks of gestation of pregnancy not specified | CPT/HCPCS: 87081 ==

== ENCOUNTER 2023-06-30 19:30 | Inpatient (IN) | payer OTHER, SELFPAY ==
[2023-06-30] VITALS (12 sets, daily range): BP systolic 111–129; BP diastolic 54–67; PULSE 61–127; RESP 18; TEMP 36.6–37; O2SAT 79–99; BMI 32.5
[2023-06-30] MEDS: Lactated Ringers 1,000 ML 50 ML IV (19:50)
[2023-06-30] MEDS: 0.9% Saline Lock 10 ML Syringe IV (19:50)
[2023-06-30] MEDS: Oxytocin 10 UNITS/ML Vial IM (19:51)
--- NOTE | 2023-06-30 20:02 | HP.PCM.OB_ITS ---
HPI - General General Date of Admission: 06/30/23 HPI Narrative ELISABET STANLEY, is a 27 y/o @39 weeks 6 days F who presents to L&D in active labor. Nurses called me at home to inform that she was complete and + 2 station with water bag intact. Upon arrival to the unit the baby was delivered. Per the nurse, the baby delivered en caul. Placenta was intact. Maternal Data Information TOI Calculator Estimated Delivery Date Method Current WG Current Estimate 07/01/23 Ultrasound #1 39w 6d Other Estimates 06/29/23 Ultrasound #2 40w 1d PFSH PFS Medical History Asthma Autoimmune disease Depression History of COVID-19 Prolonged rupture of membranes, delivered Vaginal delivery Home Medications cholecalciferol (vitamin D3) 50 mcg (2,000 unit) capsule 50 mcg PO DAILY 02/25/22 [History Last Taken Unknown] multivit-min no.71-iron fum 28 mg-folate no.1 1 mg-dha 300 mg capsule (PNV- [place]) cap PO 11/29/22 [History Last Taken Unknown] Allergy/AdvReac Type Severity Reaction Status Date / Time No Known Allergies Allergy Verified 06/19/23 08:36 Family History Grandmother Diabetes Other Cancer Social History adopted: No household members: spouse and children number of children: 1 current occupational status: employed current occupation: [employer] Teacher pets and animals: No history of recent travel: No sexually active: Yes Smoking Status: Never smoker alcohol intake: never substance use type: does not use diet: gluten free and lactose free well-balanced diet: daily or most days caffeine: No eating out: rarely or never during the past year weight has: remained stable what type of physical activity do you participate in: running and aerobics frequency: 3-4 times per week duration: 15-30 minutes/day it/gnosticist: Sabianist seatbelt use: always do you feel safe at home: Yes additional social history: [facility] History 2 Elective abortions Hx Para 1 Spontaneous abortions Hx # Term Pregnancies Ectopic pregnancies Hx # Pregnancies Multiple births # of living children 1 Past Pregnancies Del. Date Name GA/Weeks Outcome Route Bth Weight Infant Gen [facility] 01[facility]22 Iman 38 live - full term 7lbs Female [facility] Mary Mg Delivery Date: 01/10/22 Last Updated by: Ava Moody SROM Visit Details Expected Delivery Route/Plan Labor Preferences- CB/BF classes: declines need labor support person: marky labor intervention preferences: no epidural pain management options preferred: no epidural cut cord/dad catch: yes : plans PP control planned: nfp discussed possible routes of delivery and associated risks: discussed possible delivery modalities and possible indications for each including R/B/A of , VAVD, and CS. questions answered. special requests: Plans Covid status: discussed Flu vaccine: discussed Tdap vaccine: discussed Rhogam: NA LARC form signed: completed movement and labor precautions reviewed. Problem list reviewed and updated with the most current plan of care details and appropriate orders placed. Relevant counseling for the gestational age provided. Continue routine care and follow up unless otherwise noted in visit notes/problem list details OB Flowsheet Initial Weight: 166 lb Date -?-?-?-?-?-?-?-?-?-?-?-?- EGA Weight BP Urine Prot -?-?-?-?-?-?-?-?-?-?-?-?- Glucose FHR FuHt Pres Dilation -?-?-?-?-?-?--?-?-?-?-?-?- Effaced St Visit Note 12/07/22 -?-?-?-?-?-?-?-?-?-?-?-?- 10w 4d 166 lb (+0 oz) 104/61 -?-?-?-?-?-?-?-?-?-?-?-?- 169 -?-?-?-?-?-?-?-?-?-?-?-?- JV- JV-single live IUP meausurin g 10 weeks 6 days and consistent with 7 week ultrasound. Pt declines NIPT. she is still breast feeding her 10 month old. 01/04/23 -?-?-?-?-?-?-?-?-?-?-?-?- 14w 4d 164 lb 2 oz (-1 lb 14 oz) 108/64 Negative -?-?-?-?-?-?-?-?-?-?-?-?- Negative 151 -?-?-?-?-?-?-?-?-?-?-?-?- MH-No VB, crampi ng. Denies concerns 03/08/23 -?-?-?-?-?-?-?-?-?-?-?-?- 23w 4d 178 lb 2 oz (+12 lb 2 oz) 100/68 -?-?-?-?-?-?-?-?-?-?-?-?- 148 24 -?-?-?-?-?-?-?-?-?-?-?-?- KW-+ FM. No lof/ vb/ctx. anatomy reviewed-53%. 28 week labs discussed and ordered. no concerns 04/19/23 -?-?-?-?-?-?-?-?-?-?-?-?- 29w 4d 185 lb (+19 lb) 104/60 Negative -?-?-?-?-?-?-?-?-?-?-?-?- Negative 135 30 -?-?-?-?-?-?-?-?-?-?-?-?- KW-+fm, no lof/v b/ctx. declines Tdap. LARC done. 05/03/23 -?-?-?-?-?-?-?-?-?-?-?-?- 31w 4d 185 lb 4 oz (+19 lb 4 oz) 109/69 Negative -?-?-?-?-?-?-?-?-?-?-?-?- Negative 130 32 -?-?-?-?-?-?-?-?-?-?-?-?- KW-+FM. no lof/v b/ctx. No concerns 05/17/23 -?-?-?-?-?-?-?-?-?-?-?-?- 33w 4d 185 lb 6 oz (+19 lb 6 oz) 99/61 Negative -?-?-?-?-?-?-?-?-?-?-?-?- Negative 140 33 -?-?-?-?-?-?-?-?-?-?-?-?- LC- no lof/ctx/v b. good fm. no concerns. labor precautions reviewed. 05/31/23 -?-?-?-?-?-?-?-?-?-?-?-?- 35w 4d 186 lb 4 oz (+20 lb 4 oz) 104/66 Negative -?-?-?-?-?-?-?-?-?-?-?-?- Negative 135 35 -?-?-?-?-?-?-?-?-?-?-?-?- JV- some minor p eriod like cramps. no leaking fluid, or vaginal bleeding + FM. 06/05/23 -?-?-?-?-?-?-?-?-?-?-?-?- 36w 2d 186 lb 6 oz (+20 lb 6 oz) 103/66 Negative -?-?-?-?-?-?-?-?-?-?-?-?- Negative 140 36 -?-?-?-?-?-?-?-?-?-?-?-?- SM- no vb lof go od fm no regular ctx SM- no vb lof good fm no reg ular ctx gbs collected 06/12/23 -?-?-?-?-?-?-?-?-?-?-?-?- 37w 2d 188 lb (+22 lb) 118/70 Negative -?-?-?-?-?-?-?-?-?-?-?-?- Negative 135 37 Cephalic -?-?-?-?-?-?-?-?-?-?-?-?- SM- no vb lof g ood fm no regular ctx 06/19/23 -?-?-?-?-?-?-?-?-?-?-?-?- 38w 2d 190 lb 8 oz (+24 lb 8 oz) 118/72 Negative -?-?-?-?-?-?-?-?-?-?-?-?- Negative 151 38 -?-?-?-?-?-?--?-?-?-?-?-?- MH-no VB, LOF. N o reg CTX. Good Fm ROS Constitutional Constitutional: Denies change in weight, fatigue, fever(s), headache(s), poor appetite or weakness Eyes Eyes: Denies blurry vision, change in vision, seeing flashes or spots in vision ENT HEENT: Denies dizziness, headache(s), loss taste/smell or sore throat Cardiovascular Cardiovascular: Denies chest pain, dizziness, dyspnea, irregular heart rhythm, leg edema, palpitations, rapid heart rate or vomiting Respiratory/Chest Respiratory/Chest: Denies chest tightness, cough, dyspnea or breast pain Gastrointestinal Gastrointestinal: Denies abdominal pain, anorexia, constipation, cramping, diarrhea, hemorrhoids, vomiting or weight changes Genitourinary Genitourinary: Denies dysuria, flank pain, genital lesions, genital pain, urinary frequency or urinary urgency Musculoskeletal Musculoskeletal: Denies back pain, difficulty walking, joint pain, limited range of motion, muscle cramps or numbness Integumentary Integumentary: Denies lesions or unusual bruising Neurologic Neurologic: Denies abnormal movements, abnormal speech, dizziness, numbness, seizure-like activity or syncope Psychiatric Psychiatric: Denies anxiety, behavioral changes, change in appetite, change in libido, cognitive impairment, confusion, depression, difficulty concentrating, hallucinations or suicidal thoughts Endocrine Endocrinology: Denies excessive sweating, polydipsia or polyuria Hematologic/Lymphatic Hematologic/Lymphatic: Denies easy bleeding, easy bruising or lymphadenopathy Allergic/Immunologic Allergic/Immunologic: Denies itchy eyes, lip swelling, seasonal rhinorrhea, rhinitis, throat swelling, tongue swelling, eczemia, wheezing or asthma Vital Signs Vital Signs Vital Signs: 06/30/23 19:44 06/30/23 19:44 06/30/23 20:01 Pulse Rate 109 H Blood Pressure 127/67 H BP Systolic 127 BP Diastolic 67 Pulse Ox 97 06/30/23 20:01 Pulse Rate 76 Blood Pressure BP Systolic BP Diastolic Pulse Ox Physical Exam Const alert, oriented x3, no apparent distress and healthy appearing General Appearance: cooperative; Negative for anxious HEENT normocephalic Face and Sinus: normal facial exam Eyes EOMs intact bilaterally and no scleral icterus General Eye: normal appearance of both eyes Neck full ROM and supple Lymph Lymphatic: no lymphadenopathy noted Chest Chest: abnormal inspection of the chest Resp normal respiratory effort Effort and Inspection: able to speak in complete sentences Cardio regular rate GI soft to palpation and non-tender Inspection: gravid Palpation: soft; Negative for tender external exam normal Narrative: umbilical cord was clamped and placenta in tact. see operative note. Amniotic Fluid: ROM+plus Back/Spine no CVA tenderness Extremity normal to inspection, full ROM and no clubbing, cyanosis or edema General Extremity: Negative for calf tenderness or edema Skin Lesions: no lesions Rashes: no rashes Psych mental status grossly normal Labs Labs Labs: Blood Type A POSITIVE Antibody Screen NEGATIVE Hct 35.8 % (37-47) L Hgb 12.2 g/dL (12.0-15.0) Obstetrics US Syphilis Total Ab Non-reactive Rubella IgG Antibody Reactive (Nonreactive) Hep Bs Antigen Non-Reactive (Nonreactive) Chlamydia DNA ([place]) Negative (Negative) Neisseria gonorrhoeae DNA ([place]) Negative (Negative) HIV 1&2 Antibody Non-Reactive (Nonreactive) Glucose 1 Hr 50 gm 135 mg/dL (70-140) Assessment & Plan (1) Glucose intolerance of : COMMENT: passed 3 hour GCT (2) Supervision of high risk , antepartum: COMMENT: [id number], TOI 07/01/23 boy Erick MIRANDA Iman Saurav (3) : QUALIFIERS: Weeks of gestation: 37 weeks Qualified Code(s): Z3A.37 - 37 weeks gestation of COMMENT: GBS Negative, declined genetic & carrier testing, nl anatomy 03/01 growth 53% PLAN: Plan active labor- delivered en caul prior to my arrival. plan for placental delivery and vaginal repair. care as usual.
--- NOTE | 2023-06-30 20:05 | OP.PCM_ITS ---
Assessment & Plan (1) Glucose intolerance of : COMMENT: passed 3 hour GCT (2) Supervision of high risk , antepartum: COMMENT: [id number], TOI 07/01/23 boy Erick Valerio Saurav (3) : QUALIFIERS: Weeks of gestation: 37 weeks Qualified Code(s): Z3A.37 - 37 weeks gestation of COMMENT: GBS Negative, declined genetic & carrier testing, nl anatomy 03/01 growth 53% Maternal Data Information TOI Calculator Estimated Delivery Date Method Current WG Current Estimate 07/01/23 Ultrasound #1 39w 6d Other Estimates 06/29/23 Ultrasound #2 40w 1d Final TOI: 07/01/23 Vaginal Delivery Operative Information Date of Procedure: 06/30/23 Pre-Operative Diagnosis: active labor @ 39 weeks 6 days Post-Operative Diagnosis: active labor @ 39 weeks 6 days Surgery / Procedure Performed: Spontaneous Vaginal Delivery Type of Anesthesia: None Estimated Blood Loss: 150cc Findings Description of Procedure: The patient was present for a total of 15 minutes in the unit and was delivered upon my arrival to the unit. Per the nurse at her bedside, the delivered en caul and there were no signs of a nuchal cord or shoulder dystocia. The was found to be vigorous and crying and moving of all extremities. The patient was comfortable and holding a vigorous male infant, the cord was found to be clamped. The placenta was found to be intact. The uterus was then massaged and the placenta delivered. A brisk let down of blood was noted and she was given IM pitocin and uterine massage. A first degree perineal laceration was identified and injected with 1% lidocaine. The laceration was repaired using a 3-0 vicryl rapid. The patient tolerated the procedure well. sponge, lap, and needle counts were correct x 2. Presentation: Vertex Amniotic Membrane Rupture Type: Artificial Amniotic Fluid Description: Clear Placenta Disposition: [facility] Cord Vessel Description: 3 Vessels Cord Entanglement: None A Gender: Male (1 minute): 8 (5 minute): 9 Delayed Cord Clamping: No Post Vaginal Delivery Medications Given After Delivery: IM Pitocin Episiotomy Description: None Laceration: 1st degree Complication Complications: None Multi Select Codes Urinary/Genital Urinary/Genital CPT Codes: 01424 Vaginal Delivery [facility]
--- NOTE | 2023-06-30 20:10 | DCINST_ITS ---
Discharge Instructions Diet Discharge Diet: No restrictions Activity Discharge Activity: Return to Normal Activity, May Not Drive (while taking narcotic pain medications.) and May Shower May resume sexual activity in: 4-6 weeks Dressing / Incision Call your doctor if your incision/area has: Continuous Slow Oozing, Sudden Increased Bleeding, Increased Pain/ Swelling, Increased Redness and Foul Smelling Discharge Follow Up Care Please Follow Up With: Vidya Dumont, DO When: Call [phone] to make an appointment with your doctor in 6 weeks. If you had elevated blood pressure or 4th degree laceration, you will need to be seen in 2 weeks. Test Results: Test results from this visit will be discussed in further detail at your follow- up appointment, if applicable. Discharge Plan Admission Admit Date/Time: 06/30/23 19:30 Attending Provider: Vidya Dumont Discharge Orders/Prescriptions Prescriptions: No Action cholecalciferol (vitamin D3) 50 mcg (2,000 unit) capsule 50 mcg PO DAILY [facility] 28-1-300 mg capsule PO
[2023-06-30 20:13] LABS: Absolute Lymphocyte Count 2.58 X10^3/uL (0.83-4.51); Absolute Neutrophil Count 9.1 X10^3/uL (2.0-7.7); Basophil# 0.06 X10^3/uL; Basophil% 0.5 % (0-1); Eosinophil# 0.03 X10^3/uL; Eosinophils% 0.2 % (0-5); Hematocrit 41.8 % (37-47); Hemoglobin 13.6 g/dL (12.0-15.0); Lymphocyte # 2.58 X10^3/ul (0.83-4.51); Lymphocyte % 20.1 % (19-41); Mean Corp Hgb Conc 32.5 g/dL (32-36); Mean Corpuscular Hgb 30.3 pg (27.0-32.0); Mean Corpuscular Volume 93.1 fL (81-99); Mean Platelet Vol. 9.9 fl (6.2-12.0); Monocyte# 0.81 X10^3/uL; Monocyte% 6.3 % (0-10); NRBC Flagged by Analyzer 0 % (0-5); Neutrophil % 71.1 % (47-70); Platelet Count 247 K/mm3 (150-450); RBC Distribution Width CV 12.5 % (11.6-14.6); RBC Distribution Width SD 42.7 fl (35.1-43.9); Red Blood Count 4.49 M/mm3 (4.2-5.4); White Blood Count 12.8 K/mm3 (4.4-11.0)
[2023-06-30] MEDS: Lidocaine 1% (20 ml mdv) 20 ML Vial INFILT (20:24)
[2023-06-30 20:56] LABS: Syphilis Antibodies Non-reactive
[2023-07-01] VITALS (8 sets, daily range): BP systolic 94–122; BP diastolic 52–67; PULSE 63–85; RESP 14–16; TEMP 36.1–36.6; O2SAT 97
--- NOTE | 2023-07-01 08:13 | PN.OBGYN_ITS ---
Subjective Subjective Patient doing well without complaints. Tolerating PO. Ambulating and voiding without difficulty. Feeding well. Denies chest pain, shortness of breath, calf pain/swelling, fevers, chills, lightheadedness. Objective Data Objective Data Vital Signs: Vital Signs Temp Pulse Resp BP Pulse Ox O2 Del Method 97.8 F 85 14 115/57 L 98 Room Air 07/01/23 04:21 07/01/23 04:21 07/01/23 04:21 07/01/23 04:21 06/30/23 22:01 07/01/23 04:21 Oxygen Delivery Method Room Air Weight: 183 lb 9.6 oz Body Mass Index (BMI) 32.5 Intake & Output: Intake and Output for Last 24 Hours 06/29/23 06/30/23 07/01/23 23:59 23:59 23:59 Intake Total 0.83 / 0.83 Output Total 550 / 550 Balance -549.17 / -549.17 Lab / Micro Data 06/30/23 19:50 Labs: Laboratory Results - last 24 hr 06/30/23 19:50: WBC 12.8 H, RBC 4.49, Hgb 13.6, Hct 41.8, MCV 93.1, MCH 30.3, MCHC 32.5, RDW Std Deviation 42.7, RDW Coeff of Brennan 12.5, Plt Count 247, MPV 9.9, Immature Gran % (Auto) 1.800 H, Neut % (Auto) 71.1 H, Lymph % (Auto) 20.1, Logan % (Auto) 6.3, Eos % (Auto) 0.2, Baso % (Auto) 0.5, Absolute Neuts (auto) 9.1 H, Absolute Lymphs (auto) 2.58, Nucleated RBC % 0, Syphilis Total Ab Non- reactive, Blood Type A POSITIVE, Antibody Screen NEGATIVE ROS Constitutional Constitutional: Denies chills, fatigue, fever(s), poor appetite or weakness Eyes Eyes: Denies blurry vision, change in vision, seeing flashes or spots in vision ENT HEENT: Denies dizziness, headache(s), loss taste/smell or sore throat Cardiovascular Cardiovascular: Denies chest pain, dizziness, dyspnea, irregular heart rhythm, palpitations or rapid heart rate Respiratory/Chest Respiratory/Chest: Denies chest tightness, cough, dyspnea or breast pain Gastrointestinal Gastrointestinal: Denies abdominal pain, constipation or vomiting Genitourinary Genitourinary: Denies dysuria or flank pain Musculoskeletal Musculoskeletal: Denies difficulty walking, joint pain, limited range of motion or numbness Neurologic Neurologic: Denies abnormal movements, abnormal speech, dizziness, numbness, seizure-like activity or syncope Psychiatric Psychiatric: Denies anxiety, behavioral changes, change in appetite, confusion, depression or suicidal thoughts Physical Exam Const alert, oriented x3 and no apparent distress General Appearance: cooperative and comfortable Resp normal respiratory effort Cardio regular rate GI normal to inspection, nondistended, normoactive bowel sounds GI Narrative: uterus is firm below umbilicus Palpation: soft Back/Spine no CVA tenderness and thoraco-lumbar ROM normal Extremity normal to inspection, no clubbing, cyanosis or edema, no calf tenderness and no pedal edema Psych mental status grossly normal, thought process normal, cooperative, affect normal, speech normal, activity/motor behavior normal, denies homicidal ideation and denies suicidal ideation Assessment & Plan (1) Vaginal delivery: COMMENT: baby issa denson 06/30/23- MISA
[2023-07-01] MEDS: Naproxen 500 MG Tablet PO (17:56)
== END 2023-07-01 20:50 | disposition home or self-care (01) | DRG 807 ==
PROVIDERS: Admitting Provider Obstetrics & Gynecology; Visit Provider Obstetrics & Gynecology
DX: O75.89 Other specified complications of labor and delivery (principal); Z37.0 Single live birth; O99.814 Abnormal glucose complicating childbirth; O70.0 First degree perineal laceration during delivery; Z3A.39 39 weeks gestation of pregnancy; Z86.16 Personal history of COVID-19
CPT/HCPCS: 59050; 85025; 86780; 86850; 86900; 86901; 99221; J7120; A4216; G0378

== ENCOUNTER → 2025-07-28 | Outpatient (CLI) | payer OTHER, SELFPAY ==
[2025-07-28 12:29] LABS: Hematocrit 37.9 % (37-47); Hemoglobin 13.0 g/dL (12.0-15.0); Immature Granulocytes Count 0.040 X10^3/uL (0.0-0.0); Mean Corp Hgb Conc 34.3 g/dL (32-36); Mean Corpuscular Volume 87.1 fL (81-99); Mean Platelet Vol. 10.6 fl (6.2-12.0); NRBC Flagged by Analyzer 0 % (0-5); Platelet Count 286 K/mm3 (150-450); RBC Distribution Width CV 12.1 % (11.6-14.6); RBC Distribution Width SD 38.7 fl (35.1-43.9); Red Blood Count 4.35 M/mm3 (4.2-5.4); White Blood Count 8.1 K/mm3 (4.4-11.0)
[2025-07-28 12:53] LABS: HIV Nonreactive (Nonreactive); Hepatitis B Surface Antigen Nonreactive (Nonreactive); Hepatitis C Antibody Nonreactive (Nonreactive); Syphilis Antibodies Nonreactive (Nonreactive)
[2025-07-29 20:08] LABS: Chlamydia By Nucleic Acid AMP Negative (Negative); Gonococcus By Nucleic Acid AMP Negative (Negative)
[2025-08-01 14:08] LABS: HPV APTIMA, High Risk Negative (Negative)
== END | disposition home or self-care (01) ==
PROVIDERS: Referring Provider Obstetrics & Gynecology; Visit Provider Obstetrics & Gynecology
DX: O99.619 Diseases of the digestive system complicating pregnancy, unspecified trimester (principal); K29.70 Gastritis, unspecified, without bleeding; Z12.4 Encounter for screening for malignant neoplasm of cervix; Z3A.00 Weeks of gestation of pregnancy not specified
CPT/HCPCS: 36415; 83036; 85025; 86703; 86762; 86780; 86803; 86850; 86900; 86901; 87086; 87340; 87491; 87591; 87624; 88175; G0145